=== PATIENT | female | born 1990 | race American Indian/Alaskan Native ===

== ENCOUNTER 2017-12-25 21:02 | Emergency (ER) | payer OTHER ==
[2017-12-25 21:16] VITALS: BP 123/85
--- NOTE | 2017-12-25 21:58 | Cat Scan Report ---
FINAL REPORT PROCEDURE: CT HEAD/BRAIN WO CON TECHNIQUE: Computerized tomography of the head was performed without contrast material. HISTORY: trauma COMPARISON: No prior studies are available for comparison. FINDINGS: Skull and scalp: Normal. Paranasal sinuses: Normal. Ventricles and subarachnoid spaces: Normal. Cerebrum: No evidence of hemorrhage, acute infarction or mass . Cerebellum and brainstem: No evidence of hemorrhage, acute infarction or mass. Vasculature: Normal. Comments: None. IMPRESSION: Normal Examination
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
[2017-12-26] MEDS: MOTRIN PO ONE (01:03)
[2017-12-26] MEDS: ZOFRAN ODT PO ONE (01:04)
[2017-12-26] MEDS: TYLENOL PO ONE (01:04)
== END 2017-12-26 01:21 | disposition home or self-care (01) ==
LOC: ED 21:02
DX: R51 Headache (principal); M54.2 Cervicalgia; V49.49XA Driver injured in collision with other motor vehicles in traffic accident, initial encounter; Y93.89 Activity, other specified; Y92.89 Other specified places as the place of occurrence of the external cause; Y99.8 Other external cause status
CPT/HCPCS: 70450; Q0162

== ENCOUNTER 2020-07-19 17:10 | Emergency (ER) | payer SELFPAY ==
[2020-07-19 17:22] VITALS: BP 130/81
[2020-07-19 18:15] LABS: Hematocrit 24.8 % (30.3-42.9); Mean Corpuscular HGB Conc 32 % (30-34); Platelet Count 213 K/mm3 (140-440)
[2020-07-19 18:16] LABS: Mean Corpuscular Volume 64 fl (79-97); Red Cell Distribution Width 26.5 % (13.2-15.2)
[2020-07-19 18:19] LABS: Alanine Aminotransferase 26 units/L (7-56); Albumin 4.6 g/dL (3.9-5); Blood Urea Nitrogen 8 mg/dL (7-17); Calcium 8.9 mg/dL (8.4-10.2); Hemolysis Index 0
[2020-07-19 18:22] LABS: BUN/Creatinine Ratio 13
[2020-07-19 18:26] LABS: Bacteria,Urine 1+ /HPF (Negative); Bilirubin,Urine NEG (Negative); Blood,Urine LG (Negative); Color,Urine Yellow (Yellow); Mucus,Urine FEW /HPF; Urobilinogen,Urine < 2.0 mg/dL (<2.0)
[2020-07-19 18:32] LABS: RBC,Urine > 182.0 /HPF (0.0-6.0)
[2020-07-19 18:48] LABS: Total Cells Counted 100
[2020-07-19 18:49] LABS: Anisocytosis 2+; Poikilocytosis Rare
[2020-07-19 18:50] LABS: Dimorphic RBC Yes; Hypochromasia 2+
--- NOTE | 2020-07-19 18:50 | XRay Report ---
XR chest routine 2V INDICATION / CLINICAL INFORMATION: CP, SOB COMPARISON: None available. FINDINGS: SUPPORT DEVICES: None. HEART / MEDIASTINUM: No significant abnormality. LUNGS / PLEURA: Lungs are clear. Costophrenic sulci are sharp. No pneumothorax. ADDITIONAL FINDINGS: No significant additional findings. IMPRESSION: 1. No acute findings. Signer Name: Tavo Bowens MD Signed: 07/19/2020 6:46 PM Workstation Name: [id number]
--- NOTE | 2020-07-19 19:02 | Emergency Department Report ---
ED General Adult HPI - General Chief complaint: Back Pain/Injury Stated complaint: CP/BACK PAIN/ NAUSEA Time Seen by Provider: 07/19/20 17:20 Source: patient Mode of arrival: Ambulatory Limitations: No Limitations - History of Present Illness Initial comments: Patient is a 29-year-old female presents emergency room with complaints of chest pain that began a week ago. She states sometimes that is on the left side of the chest and then sometimes is on the right side of the chest. She denies any radiation of the pain. Patient states that she also has lower back discomfort and nausea. She denies any fall or injury. She states that her pain is worse with movement. She denies any dysuria, urinary symptoms, vaginal discharge, dark urine or odor to the urine, urinary frequency, vomiting, diarrhea, abnormal vaginal discharge, leg swelling. She denies any recent travel, recent surgery, hormone use, sick contacts. No past medical history. No allergies medications. She is currently on her menstrual cycle. - Related Data Previous Rx's Medication Instructions Recorded Last Taken Type Docusate Sodium [Colace] 100 mg PO BID #60 capsule 07/19/20 Unknown Rx Ferrous Sulfate [Ferrous Sulfate 324 mg PO DAILY #30 tablet. 07/19/20 Unknown Rx 324 MG] Fluconazole (Nf) [Diflucan TAB] 150 mg PO ONCE 1 Days #1 tablet 07/19/20 Unknown Rx Naproxen [EC-Naprosyn] 500 mg PO BID PRN #14 tablet. 07/19/20 Unknown Rx cephALEXin [Keflex] 500 mg PO BID 7 Days #14 cap 07/19/20 Unknown Rx methOCARBAMOL [Robaxin TAB] 500 mg PO BID PRN #14 tab 07/19/20 Unknown Rx Allergies Allergy/AdvReac Type Severity Reaction Status Date / Time No Known Allergies Allergy Verified 07/19/20 17:17 ED Review of Systems ROS: Stated complaint: CP/BACK PAIN/ NAUSEA Other details as noted in HPI Comment: All other systems reviewed and negative ED Past Medical Hx - Past Medical History Previous Medical History?: No - Surgical History Past Surgical History?: No - Social History Smoking Status: Never Smoker Substance Use Type: None - Medications Home Medications: Home Medications Medication Instructions Recorded Confirmed Last Taken Type Docusate Sodium [Colace] 100 mg PO BID #60 capsule 07/19/20 Unknown Rx Ferrous Sulfate [Ferrous Sulfate 324 mg PO DAILY #30 tablet.dr 07/19/20 Unknown Rx 324 MG] Fluconazole (Nf) [Diflucan TAB] 150 mg PO ONCE 1 Days #1 tablet 07/19/20 Unknown Rx Naproxen [EC-Naprosyn] 500 mg PO BID PRN #14 tablet. 07/19/20 Unknown Rx cephALEXin [Keflex] 500 mg PO BID 7 Days #14 cap 07/19/20 Unknown Rx methOCARBAMOL [Robaxin TAB] 500 mg PO BID PRN #14 tab 07/19/20 Unknown Rx ED Physical Exam - General Limitations: No Limitations General appearance: alert, in no apparent distress - Head Head exam: Present: atraumatic, normocephalic - Eye Eye exam: Present: normal appearance - ENT ENT exam: Present: mucous membranes moist - Neck Neck exam: Present: normal inspection, full ROM. Absent: tenderness - Respiratory Respiratory exam: Present: normal lung sounds bilaterally, chest wall tenderness (reproducible anterior chest wall ttp, no crepitus, no deformity ). Absent: respiratory distress, wheezes, rales, rhonchi, stridor, accessory muscle use, decreased breath sounds, prolonged expiratory - Cardiovascular Cardiovascular Exam: Present: regular rate, normal rhythm, normal heart sounds. Absent: systolic murmur, diastolic murmur, rubs, gallop - GI/Abdominal GI/Abdominal exam: Present: soft, normal bowel sounds. Absent: distended, tenderness, guarding, rebound, rigid - Back Exam Back exam: Present: normal inspection, full ROM, paraspinal tenderness (bilateral T-spine paraspinal muscular ttp, no midline C-spine, T-spine or L- spine ttp, no step offs, no deformities). Absent: CVA tenderness (R), CVA tenderness (L), vertebral tenderness - Neurological Exam Neurological exam: Present: alert, oriented X3 - Psychiatric Psychiatric exam: Present: normal affect, normal mood - Skin Skin exam: Present: warm, dry, intact ED Course Vital Signs 07/19/20 17:20 Temperature 98.8 F Pulse Rate 98 H Respiratory 18 Rate Blood Pressure 130/81 O2 Sat by Pulse 100 Oximetry ED Medical Decision Making - Lab Data Result diagrams: 07/19/20 17:35 07/19/20 17:35 Lab Results 07/19/20 07/19/20 07/19/20 Range/Units 17:35 17:35 17:35 WBC 6.3 (4.5-11.0) K/mm3 RBC 3.90 (3.65-5.03) M/mm3 Hgb 8.0 L (10.1-14.3) gm/dl Hct 24.8 L (30.3-42.9) % MCV 64 L (79-97) fl MCH 20 L (28-32) pg MCHC 32 (30-34) % RDW 26.5 H (13.2-15.2) % Plt Count 213 (140-440) K/mm3 Lymph % (Auto) [employer] Production [employer]er Add Manual Diff Complete Total Counted 100 Seg Neutrophils % [employer] Production [employer]er Seg Neuts % (Manual) 65.0 (40.0-70.0) % Lymphocytes % (Manual) 23.0 (13.4-35.0) % Monocytes % (Manual) 10.0 H (0.0-7.3) % Eosinophils % (Manual) 2.0 (0.0-4.3) % Nucleated RBC % Not Reportable Seg Neutrophils # Man 4.1 (1.8-7.7) K/mm3 Band Neutrophils # 0.0 K/mm3 Lymphocytes # (Manual) 1.4 (1.2-5.4) K/mm3 Abs React Lymphs (Man) 0.0 K/mm3 Monocytes # (Manual) 0.6 (0.0-0.8) K/mm3 Eosinophils # (Manual) 0.1 (0.0-0.4) K/mm3 Basophils # (Manual) 0.0 (0.0-0.1) K/mm3 Metamyelocytes # 0.0 K/mm3 Myelocytes # 0.0 K/mm3 Promyelocytes # 0.0 K/mm3 Blast Cells # 0.0 K/mm3 WBC Morphology Not Reportable Hypersegmented Neuts Not Reportable Hyposegmented Neuts Not Reportable Hypogranular Neuts Not Reportable Smudge Cells Not Reportable Toxic Granulation Not Reportable Toxic Vacuolation Not Reportable Dohle Bodies Not Reportable Pelger-Huet Anomaly Not Reportable Otto Rods Not Reportable Platelet Estimate Not Reportable Clumped Platelets Not Reportable Plt Clumps, EDTA Not Reportable Large Platelets Not Reportable Giant Platelets Not Reportable Platelet Satelliting Not Reportable Plt Morphology Comment Not Reportable RBC Morphology Not Reportable Dimorphic RBCs Yes Polychromasia Not Reportable Hypochromasia 2+ Poikilocytosis Rare Anisocytosis 2+ Microcytosis 2+ Macrocytosis Not Reportable Spherocytes Not Reportable Pappenheimer Bodies Not Reportable Sickle Cells Not Reportable Target Cells Not Reportable Tear Drop Cells Not Reportable Ovalocytes Not Reportable Helmet Cells Not Reportable Kruse-Kiefer Bodies Not Reportable [place] Rings Not Reportable Heart [place] Cells Not Reportable Bite Cells Not Reportable Crenated Cell Not Reportable Elliptocytes Not Reportable Acanthocytes (Spur) Not Reportable Rouleaux Not Reportable Hemoglobin C Crystals Not Reportable Schistocytes Not Reportable Malaria parasites Not Reportable Erick Bodies Not Reportable Hem Pathologist Commnt No Sodium 137 (137-145) mmol/L Potassium 3.4 L (3.6-5.0) mmol/L Chloride 103.1 (98-107) mmol/L Carbon Dioxide 27 (22-30) mmol/L Anion Gap 10 mmol/L BUN 8 (7-17) mg/dL Creatinine 0.6 (0.6-1.2) mg/dL Estimated GFR > 60 ml/min BUN/Creatinine Ratio 13 % Glucose 106 H (65-100) mg/dL Calcium 8.9 (8.4-10.2) mg/dL Total Bilirubin 0.20 (0.1-1.2) mg/dL AST 24 (5-40) units/L ALT 26 (7-56) units/L Alkaline Phosphatase 34 L (35-129) units/L Troponin T < 0.010 (0.00-0.029) ng/mL Total Protein 7.8 (6.3-8.2) g/dL Albumin 4.6 (3.9-5) g/dL Albumin/Globulin Ratio 1.4 % HCG, Qual Negative (Negative) Urine Color (Yellow) Urine Turbidity (Clear) Urine pH (5.0-7.0) Ur Specific [place] (1.003-1.030) Urine Protein (Negative) mg/dL Urine Glucose (UA) (Negative) mg/dL Urine Ketones (Negative) mg/dL Urine Blood (Negative) Urine Nitrite (Negative) Urine Bilirubin (Negative) Urine Urobilinogen (<2.0) mg/dL Ur Leukocyte Esterase (Negative) Urine WBC (Auto) (0.0-6.0) /HPF Urine RBC (Auto) (0.0-6.0) /HPF U Epithel Cells (Auto) (0-13.0) /HPF Urine Bacteria (Auto) (Negative) /HPF Urine Mucus /HPF Urine Yeast (Budding) /HPF 07/19/20 Range/Units 17:46 WBC (4.5-11.0) K/mm3 RBC (3.65-5.03) M/mm3 Hgb (10.1-14.3) gm/dl Hct (30.3-42.9) % MCV (79-97) fl MCH (28-32) pg MCHC (30-34) % RDW (13.2-15.2) % Plt Count (140-440) K/mm3 Lymph % (Auto) Add Manual Diff Total Counted Seg Neutrophils % Seg Neuts % (Manual) (40.0-70.0) % Lymphocytes % (Manual) (13.4-35.0) % Monocytes % (Manual) (0.0-7.3) % Eosinophils % (Manual) (0.0-4.3) % Nucleated RBC % Seg Neutrophils # Man (1.8-7.7) K/mm3 Band Neutrophils # K/mm3 Lymphocytes # (Manual) (1.2-5.4) K/mm3 Abs React Lymphs (Man) K/mm3 Monocytes # (Manual) (0.0-0.8) K/mm3 Eosinophils # (Manual) (0.0-0.4) K/mm3 Basophils # (Manual) (0.0-0.1) K/mm3 Metamyelocytes # K/mm3 Myelocytes # K/mm3 Promyelocytes # K/mm3 Blast Cells # K/mm3 WBC Morphology Hypersegmented Neuts Hyposegmented Neuts Hypogranular Neuts Smudge Cells Toxic Granulation Toxic Vacuolation Dohle Bodies Pelger-Huet Anomaly Otto Rods Platelet Estimate Clumped Platelets Plt Clumps, EDTA Large Platelets Giant Platelets Platelet Satelliting Plt Morphology Comment RBC Morphology Dimorphic RBCs Polychromasia Hypochromasia Poikilocytosis Anisocytosis Microcytosis Macrocytosis Spherocytes Pappenheimer Bodies Sickle Cells Target Cells Tear Drop Cells Ovalocytes Helmet Cells Kruse-Kiefer Bodies [place] Rings [place] Cells Bite Cells Crenated Cell Elliptocytes Acanthocytes (Spur) Rouleaux Hemoglobin C Crystals Schistocytes Malaria parasites Erick Bodies Hem Pathologist Commnt Sodium (137-145) mmol/L Potassium (3.6-5.0) mmol/L Chloride (98-107) mmol/L Carbon Dioxide (22-30) mmol/L Anion Gap mmol/L BUN (7-17) mg/dL Creatinine (0.6-1.2) mg/dL Estimated GFR ml/min BUN/Creatinine Ratio % Glucose (65-100) mg/dL Calcium (8.4-10.2) mg/dL Total Bilirubin (0.1-1.2) mg/dL AST (5-40) units/L ALT (7-56) units/L Alkaline Phosphatase (35-129) units/L Troponin T (0.00-0.029) ng/mL Total Protein (6.3-8.2) g/dL Albumin (3.9-5) g/dL Albumin/Globulin Ratio % HCG, Qual (Negative) Urine Color Yellow (Yellow) Urine Turbidity Slightly-cloudy (Clear) Urine pH 5.0 (5.0-7.0) Ur Specific [place] 1.023 (1.003-1.030) Urine Protein 100 mg/dl (Negative) mg/dL Urine Glucose (UA) Neg (Negative) mg/dL Urine Ketones Neg (Negative) mg/dL Urine Blood Lg (Negative) Urine Nitrite Neg (Negative) Urine Bilirubin Neg (Negative) Urine Urobilinogen < 2.0 (<2.0) mg/dL Ur Leukocyte Esterase Sm (Negative) Urine WBC (Auto) 81.0 H (0.0-6.0) /HPF Urine RBC (Auto) > 182.0 (0.0-6.0) /HPF U Epithel Cells (Auto) 2.0 (0-13.0) /HPF Urine Bacteria (Auto) 1+ (Negative) /HPF Urine Mucus Few /HPF Urine Yeast (Budding) 3+ /HPF - EKG Data EKG shows normal: sinus rhythm, axis, intervals, QRS complexes, ST-T waves Rate: normal - Radiology Data Radiology results: report reviewed Ordering Physician: KRUNAL MUKHERJEE Date of Service: 07/19/20 Procedure(s): XR chest routine 2V Accession Number(s): [id number] cc: KRUNAL MUKHERJEE Fluoro Time In Minutes: XR chest routine 2V INDICATION / CLINICAL INFORMATION: CP, SOB COMPARISON: None available. FINDINGS: SUPPORT DEVICES: None. HEART / MEDIASTINUM: No significant abnormality. LUNGS / PLEURA: Lungs are clear. Costophrenic sulci are sharp. No pneumothorax. ADDITIONAL FINDINGS: No significant additional findings. IMPRESSION: 1. No acute findings. Signer Name: Tavo Bowens MD Signed: 07/19/2020 6:46 PM Workstation Name: [id number] Transcribed By: TYREL Dictated By: Tavo Bowens MD Electronically Authenticated By: Tavo Bowens MD Signed Date/Time: 07/19/201845 DD/ 45 TD/TT: - Medical Decision Making Patient is a 29-year-old female presents emergency room with complaints of chest pain that began a week ago. She states sometimes that is on the left side of the chest and then sometimes is on the right side of the chest. She denies any radiation of the pain. Patient states that she also has lower back discomfort and nausea. She denies any fall or injury. She states that her pain is worse with movement. She denies any dysuria, urinary symptoms, vaginal discharge, dark urine or odor to the urine, urinary frequency, vomiting, diarrhea, abnormal vaginal discharge, leg swelling. She denies any recent travel, recent surgery, hormone use, sick contacts. No past medical history. No allergies medications. She is currently on her menstrual cycle. Vitals are stable. On exam: reproducible anterior chest wall ttp, no crepitus, no deformity, bilateral T- spine paraspinal muscular ttp, no midline C-spine, T-spine or L-spine ttp, no step offs, no deformities. Labs with evidence of microcytic anemia with hemoglobin of 8 hematocrit of 24. Otherwise labs are stable. Troponin is negative. hCG is negative. UA shows evidence of UTI and yeast. CXR: 1. No acute findings. EKG is within normal limits. PERC criteria negative for PE, PE unlikely. Chest pain is atypical and reproducible, do not suspect ACS. Symptoms could be related to anemia. Discussed all results with patient and answered questions. Discussed the importance of primary care follow-up. Patient given prescription for naproxen, Robaxin, Keflex, Colace, ferrous sulfate, fluconazole. Advised patient Please take medication as prescribed. Increase your water intake. Follow-up with your primary care doctor. Return to emergency room for new or worsening symptoms. Critical care attestation.: If time is entered above; I have spent that time in minutes in the direct care of this critically ill patient, excluding procedure time. ED Disposition Clinical Impression: Atypical chest pain, Vulvovaginal candidiasis Thoracic myofascial strain Qualifiers: Encounter type: initial encounter Qualified Code(s): S29.019A - Strain of muscle and tendon of unspecified wall of thorax, initial encounter Anemia Qualifiers: Anemia type: unspecified type Qualified Code(s): D64.9 - Anemia, unspecified UTI (urinary tract infection) Qualifiers: Urinary tract infection type: acute cystitis Hematuria presence: without hematuria Qualified Code(s): N30.00 - Acute cystitis without hematuria Disposition: TO HOME OR SELFCARE Is pt being admited?: No Does the pt Need Aspirin: No Condition: Stable Instructions: Preventing Iron Deficiency Anemia, Adult, Vaginal Yeast Infection, Adult, Muscle Strain, [id number], Urinary Tract Infection, Adult, Chest Pain (ED) Additional Instructions: Please take medication as prescribed. Increase your water intake. Follow-up with your primary care doctor. Return to emergency room for new or worsening symptoms. Prescriptions: Docusate Sodium [Colace] 100 mg PO BID #60 capsule Fluconazole (Nf) [Diflucan TAB] 150 mg PO ONCE 1 Days #1 tablet Naproxen [EC-Naprosyn] 500 mg PO BID PRN #14 tablet.dr PRN Reason: pain Ferrous Sulfate [Ferrous Sulfate 324 MG] 324 mg PO DAILY #30 tablet. cephALEXin [Keflex] 500 mg PO BID 7 Days #14 cap methOCARBAMOL [Robaxin TAB] 500 mg PO BID PRN #14 tab PRN Reason: pain Referrals: PRIMARY MD BHARAT [Primary Care Provider] - 2-3 Days KAITY CONNELL MD [Staff Physician] - 2-3 Days [facility] [Provider Group] - 2-3 Days Time of Disposition: 19:04 Print Language: SIER[place] LEONEAN
== END 2020-07-19 19:22 | disposition home or self-care (01) ==
LOC: ED 17:10
DX: S29.019A Strain of muscle and tendon of unspecified wall of thorax, initial encounter (principal); N39.0 Urinary tract infection, site not specified; D64.9 Anemia, unspecified; B37.3 Candidiasis of vulva and vagina; R07.89 Other chest pain; Z79.899 Other long term (current) drug therapy; X58.XXXA Exposure to other specified factors, initial encounter; Y93.89 Activity, other specified; Y92.89 Other specified places as the place of occurrence of the external cause; Y99.8 Other external cause status
CPT/HCPCS: 36415; 71046; 80053; 81001; 84484; 84703; 85007; 85025; 87086; 93005

== ENCOUNTER 2020-11-02 14:39 | Emergency (ER) | payer SELFPAY ==
[2020-11-02 14:58] VITALS: BP 123/77
[2020-11-02 15:33] LABS: Bilirubin,Urine NEG (Negative); Blood,Urine LG (Negative); Color,Urine Straw (Yellow); Protein,Urine <15 mg/dL mg/dL (Negative); Urobilinogen,Urine < 2.0 mg/dL (<2.0); WBC,Urine < 1.0 /HPF (0.0-6.0)
--- NOTE | 2020-11-02 16:26 | Event Note ---
ED Screening Note Date of service: 11/02/20 Time: 16:24 ED Screening Note: 30-year-old female patient with history of UTI earlier this year presents to the emergency department with complaints of left lower back pain, left flank pain, and left lower quadrant abdominal pain for 1 week. No preceding fall, trauma, or injury. Patient was treated for a urinary tract infection earlier this year. No concern for STD exposure. No prior history of kidney stones. No prior history of ovarian cyst. She is currently on her menstrual cycle. General: Awake, appropriately interactive, no acute distress. Neck: Supple. Full range of motion intact. Cardiovascular: Normal peripheral perfusion. Pulmonary: No respiratory distress. Patient is speaking normally without use of accessory muscles. Abdomen: Soft, nondistended. Left flank/left lower quadrant tenderness without guarding, rigidity, or rebound. Skin: No apparent rashes or lesions. Neurological: No facial asymmetry. Speech is clear. Follows commands. Patient is alert and oriented. Musculoskeletal: Moves all four extremities spontaneously with normal range of motion. Psych: Cooperative. Appropriate mood and affect. I have greeted and performed a focused rapid initial assessment of this patient. A comprehensive ED assessment and evaluation of the patient, analysis of all test results, and completion of the medical decision-making process will be conducted by additional ED providers. This initial assessment/diagnostic orders/ clinical plan/treatment(s) is/are subject to change based on patients health status, clinical progression and re-assessment. Further treatment and workup at subsequent clinical provider's discretion. Patient/guardian urged not to elope from the ED as their condition may be serious if not clinically assessed and managed.
[2020-11-02 16:55] LABS: Basophils % (Auto) 0.6 % (0.0-1.8); Eosinophils # (Auto) 0.2 K/mm3 (0.0-0.4); Eosinophils % (Auto) 2.8 % (0.0-4.3); Hematocrit 30.4 % (30.3-42.9); Hemoglobin 9.7 gm/dl (10.1-14.3); Lymphocytes # (Auto) 1.9 K/mm3 (1.2-5.4); Lymphocytes % (Auto) 28.8 % (13.4-35.0); Mean Corpuscular HGB Conc 32 % (30-34); Mean Corpuscular Volume 73 fl (79-97); Monocytes # (Auto) 0.5 K/mm3 (0.0-0.8); Platelet Count 163 K/mm3 (140-440); Red Blood Count 4.19 M/mm3 (3.65-5.03)
[2020-11-02 16:56] LABS: Red Cell Distribution Width 23.1 % (13.2-15.2)
[2020-11-02 17:20] LABS: Alanine Aminotransferase 22 units/L (7-56); Albumin 4.2 g/dL (3.9-5); Blood Urea Nitrogen 8 mg/dL (7-17); Calcium 8.8 mg/dL (8.4-10.2); Hemolysis Index 3
[2020-11-02 17:22] LABS: BUN/Creatinine Ratio 13
[2020-11-02] MEDS ORDERED: HYDROcodone/ACETAMINOPHEN 5-325 MG TAB PO STA (18:58)
--- NOTE | 2020-11-02 20:23 | Ultrasound Report ---
US pelvic complete, US transvaginal INDICATION / CLINICAL INFORMATION: left adnex pain. COMPARISON: None available. FINDINGS: The uterus is normal in size and appearance. Endometrial canal is normal in thickness measuring 4 mm. Small cysts are seen in the left ovary. The right ovary was not well visualized. No free fluid is se en in the pelvis. IMPRESSION: Small left ovarian cysts, otherwise negative exam Signer Name: Easton Cruz MD FACR Signed: 11/02/2020 8:18 PM Workstation Name: [id number]
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
== END 2020-11-02 20:50 | disposition home or self-care (01) ==
LOC: ED 14:39
DX: N83.202 Unspecified ovarian cyst, left side (principal); N94.6 Dysmenorrhea, unspecified; Z79.899 Other long term (current) drug therapy
CPT/HCPCS: 36415; 76830; 76856; 80053; 81001; 83735; 84703; 85025; 99284